=== PATIENT | female | born 1945 | race Caucasian/White ===

== ENCOUNTER 2017-11-05 13:38 | Emergency (ER) | payer MEDICARE, BC ==
[~2017-11-05] VITALS: Ht 154.9 cm; Wt 120.2 kg
--- NOTE | 2017-11-05 15:24 | Diagnostic Imaging Report ---
Lumbar Spine Radiographs: 3 views HISTORY: Pain. On the tailbone COMPARISON: None available. DISCUSSION: Some of the osseous structures are partially obscured by stool and bowel gas. There are five non-rib bearing lumbar vertebral bodies. The alignment of the spine is within normal limits. No displaced fracture or compression deformity is identified. Disc Spaces: Moderate multilevel facet arthrosis with severe at L4-L5 and L5-S1. Facets: The facet joints are unremarkable. Right upper quadrant cholecystectomy clips. Left abdominal surgical clips. IMPRESSION: Degenerative changes in the lumbar spine. No fractures. Signed by: Dr. Alexsander Rowe M.D. on 11/05/2017 3:21 PM
--- NOTE | 2017-11-05 15:27 | Diagnostic Imaging Report ---
Bilateral hip - 3 view(s) each Pelvis, one view HISTORY: Pain. Fall COMPARISON: None available. FINDINGS: RIGHT: No displaced fracture. The osseous alignment is within normal limits. The joint spaces are well-maintained. The soft tissues appear unremarkable. LEFT: No displaced fracture. The osseous alignment is within normal limits. The joint spaces are well-maintained. The soft tissues appear unremarkable. Enthesophytes at the greater trochanter. IMPRESSION: No acute radiographic abnormality. Signed by: Dr. Alexsander Rowe M.D. on 11/05/2017 3:23 PM
[2017-11-05 16:31] VITALS: BP 123/61
== END 2017-11-05 16:51 | disposition home or self-care (01) ==
LOC: ER 13:38
DX: S30.0XXA Contusion of lower back and pelvis, initial encounter (principal); W01.0XXA Fall on same level from slipping, tripping and stumbling without subsequent striking against object, initial encounter; Y92.008 Other place in unspecified non-institutional (private) residence as the place of occurrence of the external cause; I10 Essential (primary) hypertension; E11.9 Type 2 diabetes mellitus without complications; Z86.73 Personal history of transient ischemic attack (TIA), and cerebral infarction without residual deficits
CPT/HCPCS: 72100; 73522; 99283